=== PATIENT | female | born 1965 | race Caucasian/White ===

== ENCOUNTER → 2016-08-27 | Outpatient (CLI) | payer BC ==
[~2016-08-27] MED LIST: CLON0.5T20 PO; IBUP200T52 PO; LDDP5 TOP; OXYC-57 PO; TRAM-10 PO; TRAM-453 PO; VITACAP26 PO; WARF2TAB PO
--- NOTE | 2016-08-27 10:31 | DIAGNOSTIC IMAGING REPORT ---
RIGHT PELVIS UNILATERAL HIP 1 VIEW CLINICAL HISTORY: RIGHT HIP PAIN Right pain COMPARISON: None. DISCUSSION: Evidence for a total left hip replacement. Longstem femoral prosthetic is present. Evidence for deformity of the right femoral head with flattening and/or increased angle of the right superior acetabulum. This is considered consistent with dysplastic change. No evidence for acetabular protrusion. No well-defined acute bony abnormality. Secondary degenerative change primarily the acetabulum. There is no evidence for soft tissue swelling. 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 Pre-existing total left hip replacement with a long stem femoral prosthetic Electronically signed by: Socrates Mosquera M.D. 08/27/2016 10:30 AM Dictated Date/Time: 08/27/2016 10:29 AM
== END ==
LOC: C.RDSM 09:58
PROVIDERS: ATTEND Physician Assistant
DX: R52 Pain, unspecified (principal)

== ENCOUNTER 2016-09-19 05:21 | Inpatient (IN) | payer BC ==
--- NOTE | 2016-08-27 11:51 | PAT Medication Instructions ---
Service Date Aug 27, 2016. Current Home Medication List Clonazepam (Clonazepam Odt), 0.5 TAB PO BID Ibuprofen (Advil), 2 TABS PO DAILY PRN for Pain Lidocaine (Lidocaine), 4 % TOP DAILY PRN for Pain Tramadol (Ultram), 1 TAB PO DAILY Tramadol Hcl (Ultram), 2 TABS PO PM Vitamins C & E (Vitamin C), 1 TAB PO DAILY Medication Instructions For Your Scheduled Surgery - Hold the following medications 7 days prior to surgery per surgeon instructions: Ibuprofen (Advil), 2 TABS PO DAILY PRN for Pain - Hold the following medications the morning of surgery: Vitamins C (Vitamin C), 1 TAB PO DAILY Lidocaine (Lidocaine), 4 % TOP DAILY PRN for Pain - Take the following medications the morning of surgery with a sip of water: Tramadol (Ultram), 1 TAB PO DAILY (can take up to four hours prior to surgery if needed) Clonazepam (Clonazepam Odt), 0.5 TAB PO BID Tylenol (if needed) - Take the following medications as scheduled the night before surgery: Tramadol Hcl (Ultram), 2 TABS PO PM Clonazepam (Clonazepam Odt), 0.5 TAB PO BID Tylenol (if needed) If you have any questions please call us at [phone] or [phone] ( Antonia) or [phone]
[2016-08-27 12:01] VITALS: BMI 25.0
--- NOTE | 2016-08-27 12:28 | DIAGNOSTIC IMAGING REPORT ---
CHEST PREADMISSION(PA/LAT) CLINICAL HISTORY: PAT preoperative evaluation COMPARISON STUDY: No previous studies for comparison. FINDINGS: The bones soft tissues and hemidiaphragms are normal. The cardiomediastinal silhouette is normal. The lungs are clear. The pulmonary vasculature is normal. IMPRESSION: Negative chest. Electronically signed by: Socrates Mosquera M.D. 08/27/2016 12:27 PM Dictated Date/Time: 08/27/2016 12:26 PM
[2016-08-27 12:43] LABS: BASO % 0.4 %; BASO ABS # 0.01 K/uL (0-0.2); COMPLETE YES; EOS % 1.5 %; HEMATOCRIT 39.5 % (37-47); IG% 0.4 %; LYMPH % 27.7 %; LYMPH ABS # 0.75 K/uL (1.2-3.4); MEAN CELL VOLUME 87.8 fL (80-100); MEAN CORPUSCULAR HEMOGLOBIN 30.2 pg (25-34); MEAN CORPUSCULAR HGB CONC 34.4 g/dl (32-36); MEAN PLATELET VOLUME 10.4 fL (7.4-10.4); MONO % 17.7 %; NEUT % 52.3 %; PLATELET COUNT 185 K/uL (130-400); WHITE BLOOD COUNT 2.71 K/uL (4.8-10.8)
[2016-08-27 12:44] LABS: URINE APPEARANCE CLEAR (CLEAR); URINE BILIRUBIN NEG (NEG); URINE COLOR YELLOW; URINE NITRITE NEG (NEG); UROBILINOGEN NEG (NEG); ZZUR CULT IF INDIC CLEAN CATCH NO
[2016-08-27 12:55] LABS: MANUAL MICROSCOPIC REQUIRED? NO; REVIEW REQ? NO
[2016-08-27 12:56] LABS: PARTIAL THROMBOPLASTIN RATIO 1.1; PROTHROMBIN TIME (PATIENT) 10.4 SECONDS (9.0-12.0)
[2016-08-27 12:59] LABS: BUN/CREATININE RATIO 9.8 (10-20); CALCIUM 8.6 mg/dl (8.5-10.1); CREATININE 0.82 mg/dl (0.60-1.20); POTASSIUM 3.6 mmol/L (3.5-5.1)
--- NOTE | 2016-08-31 17:06 | HISTORY & PHYSICAL EXAMINATION ---
DATE OF ADMISSION: 09/19/2016 CHIEF COMPLAINT: Right hip pain. HISTORY OF PRESENT ILLNESS: This 51-year-old white female presents to the office with complaints of right hip pain that she has had for several years. It has become worse over the last 12 months. She has tried oral anti-inflammatories, oral pain medications, activity modification, cortisone injections, and assistive devices as well as physical therapy without lasting relief. Her pain is affecting her ADLs. She has difficulty sitting in a restaurant. Pain is worse with weightbearing. She denies any numbness or tingling. X-rays and MRI have been obtained. She elects to proceed with right total hip arthroplasty in hopes of alleviating her pain. PAST MEDICAL HISTORY: Significant for congenital hip dysplasia, osteoarthritis, TMJ, low back pain, and occasional vertigo. PREVIOUS SURGERIES: x3, sinus surgery, left total hip surgery in 1991, subsequent left total hip revision in 2003, and cholecystectomy. ALLERGIES: NKDA. CURRENT MEDICATIONS: Clonazepam 0.5 mg half tablet p.o. b.i.d., lidocaine topical patches p.r.n., tramadol 50 mg 2 tablets p.o. q. 4 hours p.r.n., and Advil p.r.n. FAMILY HISTORY: Noncontributory. SOCIAL HISTORY: The patient is . Employed as a nurse. No tobacco use. REVIEW OF SYSTEMS: Significant for above stated conditions, otherwise unremarkable. PHYSICAL EXAMINATION: GENERAL: Well-developed and well-nourished middle aged white female, in no acute distress. Sitting in a chair. Alert and oriented. SKIN: Warm and dry with good turgor. No rashes or lesions. No ecchymosis or erythema. Extensive scarring on the left thigh. HEENT: Normocephalic and atraumatic. Eyes: PERRLA, EOMI. Nares patent bilaterally without turbinate enlargement. Oropharynx is without erythema or exudate. No lesions noted. Uvula midline. Oral mucosa moist. Good dentition. HEART: RRR. No MGR. LUNGS: Clear to auscultation bilaterally. No crackles, rhonchi or wheezing. Good air movement. ABDOMEN: Mildly obese. Bowel sounds present x4. Soft and nontender. No organomegaly. No masses. MUSCULOSKELETAL: Right hip has no obvious asymmetry or deformity. Focal discomfort with palpation over the anterior flexion crease. The pain extends around to the greater trochanter. She actually has fairly good hip motion with flexion to greater than 90 degrees, but this motion does cause pain. She also has fairly good internal and external rotation with internal rotation around 15 degrees and external rotation of around 25 degrees. These also cause pain. No crepitus. Right leg is approximately 1 cm long. Ambulatory with a slightly antalgic gait. NEUROLOGIC: Gross sensation is intact across the upper and lower extremities by soft touch. Cranial nerves II-XII are intact. DATA: Radiographic imaging previously obtained showed significant hip dysplasia on the right. Subchondral cyst formation, periarticular osteophytes, and joint space loss are present. IMPRESSION: Right hip degenerative joint disease with congenital hip dysplasia. PLAN: Informed written consent was obtained to proceed with right total hip arthroplasty. Postoperative prescriptions for Percocet and Coumadin will be provided on the day discharge from the hospital. Anticipate discharge to home with 2 weeks of home health services and then outpatient PT. She will obtain medical clearance from her PCP, Dr. Segovia. Her was in attendance for today's visit. ROGERS
[2016-09-19] VITALS (8 sets, daily range): BP systolic 113–151; BP diastolic 67–85; PULSE 83–93; TEMP 36.4–37.5; O2SAT 96–99; Ht 175.3 cm; Wt 79.1 kg
[~2016-09-19] VITALS: Ht 175.3 cm; Wt 79.1 kg
[~2016-09-19 05:21] MED LIST changes: -OXYC-57 PO; -WARF2TAB PO
[2016-09-19] MEDS ORDERED: CEFAZOLIN 2000 MG/60 ML D5W 60 ML IV SCH (06:00)
[2016-09-19] MEDS ORDERED: LACTATED RINGER'S 1000ML 500 ML IV ONE (06:00)
[2016-09-19] MEDS ORDERED: ROPIVACAINE 5MG/ML 30 ML 150 MG, BUPIVACAINE/EPINEPHR 0.5% MPF 30 ML, KETOROLAC TROMETH... INFIL SCH ×7 (06:00)
[2016-09-19] MEDS ORDERED: LACTATED RINGER'S 1000ML IV SCH (06:00)
[2016-09-19] MEDS ORDERED: LACTATED RINGER'S 1000ML 1,000 ML IV SCH (06:00)
[2016-09-19] MEDS ORDERED: TRANEXAMIC ACID INJ 1,000 MG in SODIUM CHLORIDE 0.9% 100ML 100 ML IV SCH (06:00)
[2016-09-19] MEDS ORDERED: MIDAZOLAM HCL 1 MG/ML 2ML VIAL ONE (06:12)
[2016-09-19] MEDS ORDERED: PROPOFOL IV EMULSION 10 MG/ML 20 ML VIAL IV ONE ×3 (06:13→08:21)
[2016-09-19] MEDS ORDERED: FENTANYL CITRATE INJ 50 MCG/1 ML 2 ML VIAL ONE (06:13)
--- NOTE | 2016-09-19 06:22 | History & Physical Bridge Note ---
H&P Re-Evaluation Bridge Note: I have examined the patient, reviewed the History & Physical and in the interval since the performance of the History & Physical I have noted the following changes of clinical significance: No changes noted
[2016-09-19] MEDS ORDERED: LIDOCAINE HCL 2% 2 ML VIAL (20MG/ML) ONE (06:29)
[2016-09-19] MEDS ORDERED: BUPIVACAINE 0.5 % 5 MG/1 ML PF 10ML VIAL ONE (06:31)
[2016-09-19] MEDS ORDERED: ORTHO JOINT ANESTHETIC ONE (06:40)
[2016-09-19] MEDS ORDERED: POVIDONE-IODINE OP SOLN 30 ML BTL ONE (06:40)
[2016-09-19] MEDS ORDERED: ONDANSETRON INJ 2 MG/ML 2 ML VIAL ONE (07:42)
[2016-09-19] MEDS ORDERED: EpHEDrine SULFATE INJ 50 MG/ML AMP ONE (07:55)
--- NOTE | 2016-09-19 08:19 | [facility] Post Operative Brief Note ---
Immediate Operative Summary Operative Date Sep 19, 2016. Pre-Operative Diagnosis Right Hip Degenerative Joint Disease with Congenital Hip Dysplasia Post-Operative Diagnosis Right Hip Degenerative Joint Disease with Congenital Hip Dysplasia Procedure(s) Performed Right Total Hip Arthroplasty--Uncemented Surgeon Dr. Rocha [employer] Surgeon(s) Dr. John Maciel (Fellow)/LEA Carter Estimated Blood Loss 200cc Findings severe dysplasia/djd Fluids (cc crystalloids) 1200cc Specimens A. Right Femoral Head Drains none Anesthesia spinal Complication(s) None Disposition Recovery Room / PACU
--- NOTE | 2016-09-19 08:35 | OPERATIVE REPORT ---
DATE OF OPERATION: 09/19/2016 SURGEON: Dr. Rocha. PRESS OPERATOR AUTOMATIC: Dr. Camejo. SECOND PRESS OPERATOR AUTOMATIC: Fernando Harry PA-C PREOPERATIVE DIAGNOSIS: Dysplasia right hip with severe degenerative disease. POSTOPERATIVE DIAGNOSIS: Same. OPERATION PERFORMED: Noncemented right total hip replacement. SUMMARY OF IMPLANTS: Size 50 acetabular shell cup hole eliminator, cancellous screw 6.5 x 25, acetabular liner 32 mm, internal diameter 50 mm, outer diameter neutral, femoral stem size 1 tapered [place] femoral head +5 32. ESTIMATED BLOOD LOSS: 200 mL CRYSTALLOID: 1200 mL. DEEP VENOUS THROMBOSIS PROPHYLAXIS: Per protocol. PERIOPERATIVE SITUATION: Medically cleared female with intractable hip pain has failed conservative management. X-ray, physical exam and MRI scan consistent with severe disease. At this point in time wants to proceed with hip replacement. Had a hip replacement done on the other side that required a revision based on dysplasia. 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 PROCEDURE: The patient appropriately identified, site verified, consent verified, 2 grams of Ancef confirmed as being given. The right lower extremity was prepped and draped in usual routine fashion with the patient in the left lateral decubitus position. She was long on that side about a cm. A posterior approach to the hip made. Sharp dissection carried through the skin and blunt dissection down to the fascia. This was then incised. Retractors placed. Care taken to protect the sciatic nerve. Short external rotators were released. The capsule was teed, the hip dislocated. The femoral head was malformed and the femoral neck was short. It was carefully resected. The labrum was inverted into the acetabulum that was degenerated and torn. It was all debrided. There was a grade 4 area of the superior aspect of the acetabulum. Serial reaming was then carried up and a 50 reamer was noted to be best and then a 50 shell acetabular cup was impacted into appropriate anteversion and inclination with excellent fixation. It was then also additionally fixed with a 6.5 x 25 screw with excellent purchase. The wound was then irrigated with Betadine Pulsavac. Trial liner seated. The femur was then flexed and internally rotated. The proximal femur prepared with dry box tender, lateralizing rasp, trochanteric rasp, reaming and broaching up to a size 1. Size 1 fit the femur medially, laterally, extremely well, did not want to split the femur so stopped there. The trial reduction was excellent with a +5 head. The hip was then dislocated. All remaining trial elements were removed. The wound irrigated. Hole eliminator seated, the permanent liner seated, the permanent stem and head seated and the hip reduced. It was stable with flexion beyond 100 degrees, internal rotation beyond 25 degrees and adduction, extension, external rotation beyond the midline. The wound was then irrigated with Betadine Pulsavac and then closed with #2 Vicryl, #1 Vicryl, 2-0 Vicryl and stainless steel clips. Appropriate dressing applied and the patient transferred to recovery room in satisfactory condition having tolerated the procedure well. I attest to the content of the Intraoperative Record and any orders documented therein. Any exceptio ns are noted below.
[2016-09-19] MEDS ORDERED: MoRPHine SULFATE 2 MG/ML CARP IV PRN (08:45)
[2016-09-19] MEDS ORDERED: ALUMINUM/MAGNESIUM/SIMETH (MAALOX MAX) 30 ML UDC PO PRN (08:45)
[2016-09-19] MEDS ORDERED: BISACODYL 10 MG SUPP PR PRN (08:45)
[2016-09-19] MEDS ORDERED: ONDANSETRON INJ 2 MG/ML 2 ML VIAL IV PRN (08:45)
[2016-09-19] MEDS ORDERED: METOCLOPRAMIDE HCL INJ 5 MG/ML 2 ML VIAL IV PRN (08:45)
[2016-09-19] MEDS ORDERED: MAGNESIUM HYDROXIDE SUSP 30 ML UDC PO PRN (08:45)
[2016-09-19] MEDS ORDERED: ACETAMINOPHEN 325 MG TAB PO PRN (08:45)
[2016-09-19] MEDS ORDERED: DiphenhydrAMINE HCL 50 MG/ML VIAL IV PRN (08:45)
--- NOTE | 2016-09-19 09:12 | DIAGNOSTIC IMAGING REPORT ---
PELVIS 1 OR 2 VIEW ROUTINE CLINICAL HISTORY: Right hip arthroplasty COMPARISON STUDY: 04/09/2016 FINDINGS: The patient is a long stem total left hip arthroplasty remains unchanged in appearance. Since the prior study, the patient is undergone a total right hip arthroplasty. There is no acute fracture. There is no dislocation. There are overlying skin naila. There is air in the soft tissues consistent with history of recent surgery. IMPRESSION: Interval total right hip arthroplasty. Electronically signed by: Reno Kulkarni M.D. 09/19/2016 9:10 AM Dictated Date/Time: 09/19/2016 9:09 AM
[2016-09-19] MEDS ORDERED: ATROPINE SULFATE 0.1 MG/ML 5ML SYR IV PRN (09:15)
[2016-09-19] MEDS ORDERED: EpHEDrine SULFATE INJ 50 MG/ML AMP IV PRN (09:15)
--- NOTE | 2016-09-19 11:00 | Anesthesiology Progress Note ---
Anesthesia Post Op Note Date & Time Sep 19, 2016 at 11:00 Vital Signs Pain Intensity: 0 Vital Signs Past 12 Hours Date Time Temp Pulse Resp B/P Pulse Ox O2 Delivery O2 Flow Rate FiO2 09/19/16 10:35 37.0 09/19/16 10:33 83 16 98 09/19/16 10:33 83 16 09/19/16 10:31 126/70 09/19/16 10:28 83 15 09/19/16 10:28 84 15 98 09/19/16 10:25 125/71 09/19/16 10:23 83 16 98 09/19/16 10:23 83 16 09/19/16 10:20 115/70 09/19/16 10:18 79 16 09/19/16 10:18 79 16 98 09/19/16 10:17 80 15 09/19/16 10:17 79 15 98 09/19/16 10:15 127/70 09/19/16 10:12 80 15 09/19/16 10:12 80 15 99 09/19/16 10:10 127/68 09/19/16 10:07 83 16 99 09/19/16 10:07 83 16 09/19/16 10:06 75 16 09/19/16 10:06 75 16 99 09/19/16 10:05 123/64 09/19/16 10:01 86 13 100 09/19/16 10:01 87 13 09/19/16 10:00 124/64 09/19/16 09:56 78 14 100 09/19/16 09:56 79 14 09/19/16 09:55 126/70 09/19/16 09:51 82 19 100 09/19/16 09:51 82 19 09/19/16 09:50 122/75 09/19/16 09:47 71 15 09/19/16 09:47 71 15 100 09/19/16 09:45 126/67 09/19/16 09:42 72 15 100 09/19/16 09:42 73 15 09/19/16 09:40 125/68 09/19/16 09:37 70 13 100 09/19/16 09:37 69 13 09/19/16 09:35 126/67 09/19/16 09:32 71 17 09/19/16 09:32 69 17 100 09/19/16 09:30 122/67 09/19/16 09:27 76 15 09/19/16 09:27 79 15 100 09/19/16 09:26 67 16 100 09/19/16 09:26 68 16 09/19/16 09:25 121/61 09/19/16 09:21 79 16 09/19/16 09:21 76 16 132/65 100 09/19/16 09:16 82 20 100 09/19/16 09:16 82 20 09/19/16 09:15 119/74 09/19/16 09:11 83 19 100 09/19/16 09:11 84 19 09/19/16 09:10 131/74 09/19/16 09:08 86 18 09/19/16 09:08 87 18 100 09/19/16 09:05 118/66 09/19/16 09:03 75 15 09/19/16 09:03 74 15 100 09/19/16 09:00 122/66 09/19/16 08:58 70 16 100 09/19/16 08:58 70 16 09/19/16 08:57 77 17 09/19/16 08:57 71 17 94 09/19/16 08:56 119/69 09/19/16 08:52 80 15 09/19/16 08:52 89 15 95 09/19/16 08:50 127/67 09/19/16 08:47 78 12 100 09/19/16 08:47 79 12 09/19/16 08:45 123/81 09/19/16 08:42 90 15 09/19/16 08:42 93 15 100 09/19/16 08:40 126/86 09/19/16 08:37 87 25 09/19/16 08:37 89 25 100 09/19/16 08:36 111/73 09/19/16 08:32 98 15 09/19/16 08:32 96 15 124/70 98 09/19/16 08:32 37.3 85 20 124/70 100 Nasal Cannula 2 09/19/16 05:49 37.2 84 20 151/85 98 Room Air Notes Mental Status: alert / awake / arousable, participated in evaluation Pt Amnestic to Procedure: Yes Nausea / Vomiting: adequately controlled Pain: adequately controlled Airway Patency, RR, SpO2: stable & adequate BP & HR: stable & adequate Hydration State: stable & adequate Neuraxial Anesthesia: was administered, sensory block is resolving Anesthetic Complications: no major complications apparent
[2016-09-19] MEDS ORDERED: MoRPHine SULFATE 4 MG/ML 1 ML CARP\\VIAL IV PRN (11:15)
[2016-09-19] MEDS ORDERED: D5W AND 1/2NSS + 20MEQ KCL 1,000 ML IV SCH (12:00)
[2016-09-19] MEDS: FERROUS GLUCONATE 324 MG TAB PO SCH ×2 (13:07→17:49)
[2016-09-19] MEDS: KETOROLAC TROMETHAMINE 30 MG/ML VIAL IV. SCH ×2 (13:08→17:49)
--- NOTE | 2016-09-19 13:36 | PROGRESS NOTE ---
DATE: 09/19/2016 SUBJECTIVE: Postop check status post right total hip replacement. At this point in time, she is doing well and has no major issues. No chest pain, shortness of breath, fever, chills, nausea, vomiting or headache. OBJECTIVE: Vital signs are stable. She is afebrile. Wound dressing clean, dry and intact. Femoral sciatic nerve is intact. Hip rotation and flexion is supple and pain free. RADIOGRAPHS: X-ray postop looks excellent. ASSESSMENT AND PLAN: Overall, doing well status post right total hip replacement. Continue with care pathway, discharge tomorrow a.m.
--- NOTE | 2016-09-19 13:45 | OPERATIVE REPORT ---
DATE OF OPERATION: 09/19/2016 PREOPERATIVE DIAGNOSIS: Right hip endstage degenerative joint disease with congenital hip dysplasia. POSTOPERATIVE DIAGNOSIS: Right hip same. PROCEDURE: Right hip total hip arthroplasty using DePuy implants. SURGEON: Dr. Rocha. SWITCH BOX INSTALLER: Dr. Camejo. SECOND SWITCH BOX INSTALLER: Fernando Harry PA-C. HISTORY OF PRESENT ILLNESS: This 51-year-old white female presented to the office with complaints of intractable right hip pain. Pain had been present for several years. It has become worse over the last several months. It was affecting her ADLs. She elected to proceed with surgical intervention after being educated about potential risks and outcomes. OPERATION: The patient was taken to the operating room after being administered a spinal anesthetic. She was then given sedation. She was prepped and draped in the usual sterile fashion. Please see Dr. Rocha's operative report for specifics of the procedure. I was present for the entire case from initial patient positioning through final wound closure. Assistance was provided in patient positioning, tissue retraction, hemostasis, trial implant placement, final implant placement, and final wound closure. The patient was taken to the recovery room in satisfactory condition. I attest to the content of the Intraoperative Record and any orders documented therein. Any exceptio ns are noted below.
[2016-09-19] MEDS: ACETAMINOPHEN IV 1,000 MG in EMPTY BAG 0 ML IV SCH ×3 (13:52→22:17)
[2016-09-19] MEDS ORDERED: TRANEXAMIC ACID INJ 1,000 MG in SODIUM CHLORIDE 0.9% 100ML 100 ML IV ONE (14:30)
[2016-09-19] MEDS: CEFAZOLIN IV 2,000 MG in DEXTROSE 5% 50ML 50 ML IV SCH (15:42)
[2016-09-19] MEDS: OXYCODONE HCL IR 5 MG TAB (IMMEDIATE RELEASE) PO PRN ×2 (15:43→21:18)
[2016-09-19] MEDS ORDERED: WARFARIN SOD 5 MG TAB PO SCH (16:00)
[2016-09-19] MEDS ORDERED: OXYC-57 PO (16:42)
[2016-09-19] MEDS ORDERED: WARF2TAB PO (16:42)
[2016-09-19] MEDS: DOCUSATE SODIUM 100 MG CAP PO SCH (21:19)
[2016-09-19] MEDS: CLONAZEPAM 0.5 MG TAB PO SCH (21:20)
[2016-09-20] MEDS: KETOROLAC TROMETHAMINE 30 MG/ML VIAL IV. SCH ×2 (00:08→05:30)
[2016-09-20] MEDS: CEFAZOLIN IV 2,000 MG in DEXTROSE 5% 50ML 50 ML IV SCH (00:08)
[2016-09-20 03:10] VITALS: BP 117/69; PULSE 86; TEMP 37; O2SAT 98
[2016-09-20] MEDS: ACETAMINOPHEN IV 1,000 MG in EMPTY BAG 0 ML IV SCH (05:31)
[2016-09-20 06:28] LABS: BASO % 0.1 %; BASO ABS # 0.01 K/uL (0-0.2); COMPLETE YES; EOS % 0.2 %; HEMATOCRIT 32.5 % (37-47); IG% 0.2 %; LYMPH % 9.5 %; MEAN CELL VOLUME 88.8 fL (80-100); MEAN CORPUSCULAR HEMOGLOBIN 30.6 pg (25-34); MEAN CORPUSCULAR HGB CONC 34.5 g/dl (32-36); MEAN PLATELET VOLUME 10.5 fL (7.4-10.4); MONO % 9.9 %; NEUT % 80.1 %; PLATELET COUNT 223 K/uL (130-400); RED BLOOD COUNT 3.66 M/uL (4.2-5.4); WHITE BLOOD COUNT 12.63 K/uL (4.8-10.8)
[2016-09-20 06:39] LABS: INR 1.1 (0.9-1.1); PROTHROMBIN TIME (PATIENT) 11.3 SECONDS (9.0-12.0)
[2016-09-20 06:56] LABS: BUN/CREATININE RATIO 10.3 (10-20); CALCIUM 8.1 mg/dl (8.5-10.1); CREATININE 0.75 mg/dl (0.60-1.20); POTASSIUM 3.6 mmol/L (3.5-5.1)
--- NOTE | 2016-09-20 07:11 | PROGRESS NOTE ---
DATE: 09/20/2016 Postop day 1 status post right total hip replacement. Other than having hives patient is having no issues. She notes no chest pain, shortness of breath, fever, chills, nausea, vomiting. She is afebrile. Vital signs are stable. Wound dressing clean, dry and intact. Neurovascular check femoral sciatic nerve is excellent. Hip is located. Wound dressing clean, dry and intact. Hematocrit stable at 33. INR is 1.1. ASSESSMENT: Doing well. Will discharge today to home. Discontinue Toradol likely the source of hives. P.r.n. Benadryl. Outpatient PT to start next week. Follow up in 2 weeks for staple removal. Weightbearing to tolerance. Coumadin per nomogram today. Discharge on 4 mg. MTDD
--- NOTE | 2016-09-20 07:14 | DISCHARGE SUMMARY ---
CHIEF COMPLAINT: Right hip pain. HISTORY OF PRESENT ILLNESS: 51-year-old female with general dysplastic hip disease bilaterally who had a previous left total hip replacement. She is now admitted for right total hip replacement. Hospital course has been uneventful. She had some hives likely from Toradol and will discontinue that. She has no signs of asthma with this. PAST MEDICAL HISTORY: Congenital hip dysplasia, osteoarthritis, TMJ, back pain, and occasional vertigo. PAST SURGICAL HISTORY: x3, sinus surgery, left total hip replacement with revision in 1991 and 2003. History of cholecystectomy. ALLERGIES: None. CURRENT MEDICATIONS: Clonazepam, topical lidocaine patches, tramadol and Advil. She will continue all those as needed on a p.r.n. basis. Add Coumadin 4 mg to keep INR 1.8-2.2. Check INR on Saturday. FAMILY HISTORY: Noncontributory. 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 REVIEW OF SYSTEMS: Reveals no confounding variables. ASSESSMENT: Overall, doing well status post right total hip replacement. Discharge today. P.r.n. use of Benadryl. Discharge on 4 mg of Coumadin. Check INR on Saturday.
[2016-09-20] MEDS ORDERED: NURSING VERBAL MED ORDER ONE ×2 (07:15→13:15)
[2016-09-20] MEDS: CLONAZEPAM 0.5 MG TAB PO SCH (07:26)
[2016-09-20] MEDS ORDERED: CETIRIZINE HCL 10 MG TAB PO ONE (07:30)
[2016-09-20] MEDS ORDERED: DEXAMETHASONE INJ 10 MG in SYRINGE 0 ML IV ONE (07:30)
[2016-09-20 07:32] VITALS: BP 101/60; PULSE 78; TEMP 36.8; O2SAT 95
--- NOTE | 2016-09-20 07:35 | Anesthesiology Progress Note ---
Anesthesia Post Op Note Date & Time Sep 20, 2016 at 07:31 Vital Signs Pain Intensity: 8.0 Vital Signs Past 12 Hours Date Time Temp Pulse Resp B/P Pulse Ox O2 Delivery O2 Flow Rate FiO2 09/20/16 03:10 37.0 86 14 117/69 98 Room Air 09/20/16 00:19 Room Air 09/19/16 23:21 37.5 87 16 122/73 97 Room Air Notes Mental Status: alert / awake / arousable, participated in evaluation Pt Amnestic to Procedure: Yes Nausea / Vomiting: see Notes Pain: adequately controlled Airway Patency, RR, SpO2: stable & adequate BP & HR: stable & adequate Hydration State: stable & adequate Anesthetic Complications: no major complications apparent
[2016-09-20 08:44] VITALS: BP 101/60; PULSE 78; TEMP 36.8; O2SAT 95
--- NOTE | 2016-09-20 08:47 | Discharge Instructions ---
Discharge Instructions Date of Service Sep 19, 2016. Admission Reason for Admission: Right Hip Degenerative Joint Disease, Dysplasia Discharge Discharge Diagnosis / Problem: right hip s/p total hip replacement Discharge Goals Goal(s): Decrease discomfort, Improve function, Increase independence Activity Recommendations Activity Limitations: as noted below Lifting Limitations: gradually increase as tolerated Exercise/Sports Limitations: until after follow-up appointment Shower/Bathe: keep incision dry Driving or Machine Use: No driving until cleared by Dr. Rocha Weightbearing Status: Right weightbearing (as tolerated) . Instructions / Follow-Up Instructions / Follow-Up New Medicine: * You will likely be taking one or more of these medicines: 1. Percocet - Take, as directed, when you need it, every four to six hours to control your pain. 2. Coumadin - Thins your blood to lessen the chance of forming a blood clot. The dose of this is different for each person and is based on your blood tests that are done twice a week. * The most common side effects of pain medicine and iron are nausea and constipation. If nausea or constipation is too much of a problem or if you have any questions about your new medicines or doses, call [facility] at . We will try to help you manage these issues. VERY IMPORTANT TO READ AND REVIEW" Blood Clots and Blood Thinning Medicine: * You are given Coumadin during the immediate post-operative period to lessen the risk of blood clots forming in your legs and/or lungs. Coumadin is usually given for six weeks after surgery. * The prescription is for 2 mg tablets. At discharge, you should understand your dose and take it all at the same time every day, preferably after dinner. * You need to get your blood checked 1 - 2 times per week for six weeks, or as directed. * If your dose needs to change, we will call you. Do not take your medication on the day of the blood test until we call you. * If you don't hear from us after your blood draws, keep taking the same dose. Pain: * The immediate post-operative period after hip replacement surgery is often quite painful. * You are given a prescription for pain medicine. You should take it, as directed, when you need it, especially before physical therapy and before going to bed. Pain that interferes with sleep is very common and can last several months. * You will likely need pain medicine for the first two to four weeks. It will not stop all of the pain. The pain will lessen and as you feel better, you may change to milder pain medicine such as Tylenol. * The most common side effects of pain medicine are nausea and constipation, so don't take more than you need. Physical Therapy: * Follow the "Hip Precautions Instructions." * In some cases, the social studies teacher at the hospital will arrange to have a therapist come to your house for the first couple of weeks to help you learn these skills. * You need to practice on your own or with the help of a family member as needed. * When you learn these skills, most of the therapy can be done on your own. Home Exercise: * You were shown a series of exercises in the hospital. Do these exercises three to four times each day including the exercises you were shown in physical therapy. Walking: * Get up and walk several times each day. For the first four weeks, try not to stand or walk for more than one hour at a time. If you do stand or walk for more than one hour, you will not hurt anything, but your leg will likely swell. * As you feel comfortable, you may change from the walker or crutches to a cane and then to independent walking. SELF CARE INSTRUCTIONS AFTER TOTAL HIP REPLACEMENT Until the incision and soft tissues around your hip have healed, there is a possibility that the hip prosthesis could dislocate. A. Observe the following precautions to prevent dislocation: 1. Don't bend your hip greater than 90 degrees. 2. Avoid crossing your legs or ankles while standing or lying. 3. Sit with your feet placed 6 inches apart. 4. When sitting, keep your knees below your hips. Sit on a firm surface, avoid deep, soft chairs and couches. Use an elevated toilet seat in the bathroom. 5. Don't bend over at the waist. Use a long handled shoehorn and a sock aid to help you put on your shoes and socks. A firer electric locomotive can help you pickling grader objects that are too high or too low to reach. 6. Keep car riding to a minimum for at least one month after surgery. B. Your balance may be shaky for a while. Use crutches or a walker until directed by your doctor. C. Use hand rails when walking on stairs. D. Wear low heeled shoes with non-slip soles. E. Be sure that your floors are free of things that could trip you - throw rugs , electrical cords, small objects. Avoid wet and waxed floors, especially with crutches and canes. F. Try to walk several times a day with rest periods between. G. Continue with all the exercises taught to you in the hospital. Again, make walking a part of your daily routine. VERY IMPORTANT TO READ AND REVIEW A. Take Coumadin, or Lovenox (blood thinning medications) as directed by your doctor. If you are on Coumadin, have a pro-time (blood test) drawn according to your doctor's instructions. This will tell the doctor how well the Coumadin is thinning your blood. B. There are a few signs you need to watch for after you are home. If you notice any of the followin. Increased severe hip pain. Some pain is expected especially when you exercise. 2. Increased swelling in your leg or knee; pain or swelling of the calf muscle in either lower leg. 3. Any fluid drainage from the incision. 4. Shortness of breath or chest pain. TEDs/Elastic Stockings: * The white elastic stockings help limit swelling and prevent blood clots from forming in your legs. The more you wear them, the more they work. * Wear them for six weeks. Prevention of Infection: * Take antibiotics one hour before any dental cleaning, dental work, urological procedure, gastrointestinal procedure or any invasive surgery in order to prevent your new joint from getting infected. * You may get the antibiotics from the doctor performing the procedure or we will call in a prescription to the pharmacy of your choice. Call the office for a prescription at least 2 days prior to your appointment. Things to Watch For: * Drainage from the incision site that occurs more than one week after your surgery. * Severely increased leg pain or swelling. * Increased redness at the incision site. * Fever above 101 degrees Fahrenheit. * Unusual chest pain or shortness of breath. * Unusual pain or burning with urination. Current Hospital Diet Patient's current hospital diet: Regular Diet Discharge Diet Recommended Diet: Regular Diet Procedures Procedures Performed: Right Total Hip Arthroplasty--Uncemented Pending Studies Studies pending at discharge: no Medical Emergencies . Who to Call and When: Medical Emergencies: If at any time you feel your situation is an emergency, please call 911 immediately. . Non-Emergent Contact Non-Emergency issues call your: Primary Care Provider, Surgeon Call Non-Emergent contact if: temperature is above 101, wound has increased drainage, wound has increased redness, wound has increased pain, you have any medication questions . "Provider Documentation" section prepared by Fernando Harry PA-C. . VTE Core Measure Inpt VTE Proph given/why not?: Warfarin (Coumadin), Katerina Pimentel, SCD's [place] Drug Monitoring Program Search Results: no issues identified
[2016-09-20] MEDS: FERROUS GLUCONATE 324 MG TAB PO SCH (08:50)
[2016-09-20] MEDS: DOCUSATE SODIUM 100 MG CAP PO SCH (08:51)
--- NOTE | 2016-09-20 08:52 | Orthopedic Progress Note ---
Orthopedic Progress Note Date of Service Sep 20, 2016. Subjective Post OP Day: 1 Reports: feeling well, pain controlled w PO medications, Denies: SOB, calf pain , complaints (had hives earlier, but resolved with Zyrtec and Decadron), light headedness, nausea / vomiting Additional Notes: feels ready to go home Objective calves soft nontender, N/V intact, hip located, capillary refill less than 2 sec., dressing C/D/I, incision C/D/I, A&O x3, toes mobile, CMS intact Labs reviewed. Wound looks very good. Minimal drainage. Date Time Temp Pulse Resp B/P Pulse Ox O2 Delivery O2 Flow Rate FiO2 09/20/16 07:32 36.8 78 18 101/60 95 Room Air 09/20/16 07:10 Room Air 09/20/16 03:10 37.0 86 14 117/69 98 Room Air 09/20/16 00:19 Room Air 09/19/16 23:21 37.5 87 16 122/73 97 Room Air 09/19/16 15:30 Room Air 09/19/16 13:55 37.0 83 16 116/72 97 Room Air 09/19/16 12:45 37.2 91 19 113/68 96 Room Air 09/19/16 11:45 85 16 117/67 97 Room Air 09/19/16 11:17 36.4 86 19 128/72 97 Room Air 09/19/16 10:45 Nasal Cannula 2.0 09/19/16 10:45 37.1 93 18 128/72 99 Nasal Cannula 2.0 09/19/16 10:35 37.0 09/19/16 10:33 83 16 98 09/19/16 10:33 83 16 09/19/16 10:31 126/70 09/19/16 10:28 83 15 09/19/16 10:28 84 15 98 09/19/16 10:25 125/71 09/19/16 10:23 83 16 98 09/19/16 10:23 83 16 09/19/16 10:20 115/70 09/19/16 10:18 79 16 09/19/16 10:18 79 16 98 09/19/16 10:17 80 15 09/19/16 10:17 79 15 98 09/19/16 10:15 127/70 09/19/16 10:12 80 15 09/19/16 10:12 80 15 99 09/19/16 10:10 127/68 09/19/16 10:07 83 16 99 09/19/16 10:07 83 16 09/19/16 10:06 75 16 09/19/16 10:06 75 16 99 09/19/16 10:05 123/64 09/19/16 10:01 86 13 100 09/19/16 10:01 87 13 09/19/16 10:00 124/64 09/19/16 09:56 78 14 100 09/19/16 09:56 79 14 09/19/16 09:55 126/70 09/19/16 09:51 82 19 100 09/19/16 09:51 82 19 09/19/16 09:50 122/75 09/19/16 09:47 71 15 09/19/16 09:47 71 15 100 09/19/16 09:45 126/67 09/19/16 09:42 72 15 100 09/19/16 09:42 73 15 09/19/16 09:40 125/68 09/19/16 09:37 70 13 100 09/19/16 09:37 69 13 09/19/16 09:35 126/67 09/19/16 09:32 71 17 09/19/16 09:32 69 17 100 09/19/16 09:30 122/67 09/19/16 09:27 76 15 09/19/16 09:27 79 15 100 09/19/16 09:26 67 16 100 09/19/16 09:26 68 16 09/19/16 09:25 121/61 09/19/16 09:21 79 16 09/19/16 09:21 76 16 132/65 100 09/19/16 09:16 82 20 100 09/19/16 09:16 82 20 09/19/16 09:15 119/74 09/19/16 09:11 83 19 100 09/19/16 09:11 84 19 09/19/16 09:10 131/74 09/19/16 09:08 86 18 09/19/16 09:08 87 18 100 09/19/16 09:05 118/66 09/19/16 09:03 75 15 09/19/16 09:03 74 15 100 09/19/16 09:00 122/66 09/19/16 08:58 70 16 100 09/19/16 08:58 70 16 09/19/16 08:57 77 17 09/19/16 08:57 71 17 94 09/19/16 08:56 119/69 09/19/16 08:52 80 15 09/19/16 08:52 89 15 95 09/19/16 08:50 127/67 09/19/16 08:47 78 12 100 09/19/16 08:47 79 12 Laboratory Results 24 Hours: Test 09/20/16 05:18 White Blood Count 12.63 K/uL Red Blood Count 3.66 M/uL Hemoglobin 11.2 g/dL Hematocrit 32.5 % Mean Corpuscular Volume 88.8 fL Mean Corpuscular Hemoglobin 30.6 pg Mean Corpuscular Hemoglobin Concent 34.5 g/dl Platelet Count 223 K/uL Mean Platelet Volume 10.5 fL Neutrophils (%) (Auto) 80.1 % Lymphocytes (%) (Auto) 9.5 % Monocytes (%) (Auto) 9.9 % Eosinophils (%) (Auto) 0.2 % Basophils (%) (Auto) 0.1 % Neutrophils # (Auto) 10.11 K/uL Lymphocytes # (Auto) 1.20 K/uL Monocytes # (Auto) 1.25 K/uL Eosinophils # (Auto) 0.03 K/uL Basophils # (Auto) 0.01 K/uL Prothromb Time International Ratio 1.1 Prothrombin Time 11.3 SECONDS Assessment & Plan Assessment: Right hip post op day 1 total hip arthroplasty Plan: PT/OT today total hip precautions D/C to home today with outpt PT. coumadin per nomogram dressing changed this morning. Discharge Planning Discharge Planning: home Pain Management: Percocet, Ultram DVT Prophylaxis: TEDs, SCDs, Coumadin Therapy: Physical Therapy
[2016-09-20] MEDS ORDERED: PANTOprazole SOD 40 MG TAB PO SCH (09:00)
[2016-09-20] MEDS ORDERED: MULTIVITAMIN TAB PO SCH (09:00)
[2016-09-20] MEDS ORDERED: WARFARIN SOD 5 MG TAB PO SCH (10:30)
[2016-09-21] MEDS ORDERED: TRANEXAMIC ACID INJ 1,000 MG in SODIUM CHLORIDE 0.9% 100ML 100 ML IV SCH (06:00)
[2016-09-21] MEDS ORDERED: LACTATED RINGER'S 1000ML IV SCH (06:00)
[2016-09-21] MEDS ORDERED: LACTATED RINGER'S 1000ML 1,000 ML IV SCH (06:00)
[2016-09-21] MEDS ORDERED: CEFAZOLIN 2000 MG/60 ML D5W 60 ML IV SCH (06:00)
== END 2016-09-20 13:28 | disposition home health service (06) | DRG 470 ==
LOC: ENRESERVDT → ENRESERVTM → C.ACU 05:21 → C.3E 06:20
PROVIDERS: ADMIT Physical Medicine & Rehabilitation Sports Medicine; ATTEND Physical Medicine & Rehabilitation Sports Medicine
PROC: 0SR90JA Replacement of Right Hip Joint with Synthetic Substitute, Uncemented, Open Approach (ICD-10-PCS; principal; 2016-09-19 07:00)
DX: M16.11 Unilateral primary osteoarthritis, right hip (principal); Q65.89 Other specified congenital deformities of hip; M25.851 Other specified joint disorders, right hip; L50.0 Allergic urticaria; T39.8X5A Adverse effect of other nonopioid analgesics and antipyretics, not elsewhere classified, initial encounter; Y92.230 Patient room in hospital as the place of occurrence of the external cause; M54.5 Low back pain; Z96.642 Presence of left artificial hip joint; Z79.891 Long term (current) use of opiate analgesic; Z79.899 Other long term (current) drug therapy

== ENCOUNTER → 2016-10-04 | Outpatient (CLI) | payer BC ==
[~2016-10-04] MED LIST changes: -IBUP200T52 PO; +OXYC-57 PO; +WARF2TAB PO
--- NOTE | 2016-10-04 10:03 | DIAGNOSTIC IMAGING REPORT ---
LEG LENGTH STUDY (WHOLE LEG) CLINICAL HISTORY: PREV RIGHT HIP SURGERY leg length discrepancy COMPARISON STUDY: None FINDINGS: Total leg length of the right leg is 91.6 cm. Total leg length on left is 90.3 cm. Leg length discrepancy is 1.3 cm. The bulk of the discrepancy is in the femoral lengths with the right femur having a maximum dimension of 51.1 cm with the left measuring 49.8 cm. Patient is status post bilateral total hip arthroplasties. IMPRESSION: Leg length discrepancy of 1.3 cm. Right leg is longer than the left. Associated pelvic tilt to the left. The bulk of the differential leg length is within the femurs as discussed Electronically signed by: Socrates Mosquera M.D. 10/04/2016 10:02 AM Dictated Date/Time: 10/04/2016 9:55 AM
== END | disposition home or self-care (01) ==
LOC: C.RDSM 13:44
PROVIDERS: ATTEND Physician Assistant
DX: M16.11 Unilateral primary osteoarthritis, right hip (principal); M21.70 Unequal limb length (acquired), unspecified site

== ENCOUNTER → 2016-10-29 | Outpatient (CLI) | payer BC | END | disposition home or self-care (01) | LOC: C.RDSM 11:30 | PROVIDERS: ATTEND Physical Medicine & Rehabilitation Sports Medicine | DX: Z96.643 Presence of artificial hip joint, bilateral (principal) ==

== ENCOUNTER → 2017-06-10 | Outpatient (CLI) | payer BC ==
[~2017-06-10] MED LIST changes: -OXYC-57 PO; -WARF2TAB PO
== END | disposition home or self-care (01) ==
LOC: C.RDSM 13:22
PROVIDERS: ATTEND Physical Medicine & Rehabilitation Sports Medicine
DX: M16.11 Unilateral primary osteoarthritis, right hip (principal); Q65.89 Other specified congenital deformities of hip; Z96.643 Presence of artificial hip joint, bilateral